=== PATIENT | male | born 1960 | race Caucasian/White ===

== ENCOUNTER 2021-07-24 20:02 | Inpatient (IN) ==
[2021-07-24] MEDS ORDERED: Ondansetron 4 MG/2 ML VIAL IVP PRN (22:10)
[2021-07-24] MEDS ORDERED: Acetaminophen 325 MG TABLET PO PRN (22:10)
[2021-07-24] MEDS ORDERED: Naloxone 0.4 MG/ML INJ IVP PRN (22:10)
[2021-07-24 23:12] LABS: VBG HCO3 24 mEq/L (21-27); VBG PCO2 28 mmHg (41-51); VBG PH 7.55 pH Units (7.32-7.42); VBG PO2 123 mmHg (25-50)
[2021-07-24 23:27] LABS: Creatine Kinase 325 Units/L (30-223); Ethanol < 10 mg/dL (Less than 10); Magnesium 1.3 mg/dL (1.6-2.6)
[2021-07-24 23:31] LABS: Troponin I 0.12 ng/mL (< 0.04)
[2021-07-24] MEDS ORDERED: 0.9 % Sodium Chloride 1,000 ML IVC SCH (23:45)
[2021-07-25] MEDS: *HR* LORazepam 2 MG/ML VIAL IVP PRN ×4 (00:52→20:46)
[2021-07-25 00:55] LABS: Basophils % 0.1 %; Hematocrit 34.1 % (37.5-50.1); Hemoglobin 11.6 g/dL (12.9-16.9); Immature Granulocytes % 0.4 % (0-4); Lymphocytes # 0.9 K/mcL (0.6-4.6); Lymphocytes % 9.2 %; Mean Corpuscular Hemoglobin 34.3 pg (28.0-33.3); Mean Corpuscular Volume 100.9 fL (83.0-100.0); Mean Platelet Volume 11.3 fL (9.4-12.4); Monocytes # 0.4 K/mcL (0.0-1.3); Monocytes % 4.6 %; Neutrophils # 8.2 K/mcL (1.6-8.9); Platelet Count 123 K/mcL (140-400); Red Blood Count 3.38 M/mcL (4.19-5.50); Red Cell Distribution Width 13.2 % (11.5-14.5); Segmented Neutrophils % 85.7 %; White Blood Count 9.6 K/mcL (4.3-11.1)
[2021-07-25 01:11] LABS: Alanine Aminotransferase 8 Units/L (7-52); Albumin 2.8 g/dL (3.5-5.7); Albumin/Globulin Ratio 1.1 (1.1-2.2); Alkaline Phosphatase 58 Units/L (34-104); Aspartate Amino Transferase 24 Units/L (13-39); BUN/Creatinine Ratio 32 (6-26); Bilirubin,Direct 0.4 mg/dL (0.0-0.2); Bilirubin,Indirect 0.9 mg/dL (0.0-1.0); Bilirubin,Total 1.3 mg/dL (0.3-1.0); Blood Urea Nitrogen 22 mg/dL (8-23); Calcium 7.8 mg/dL (8.6-10.3); Carbon Dioxide 24 mEq/L (23-29); Chloride 105 mEq/L (98-107); Chol/HDL Ratio 5.4 (0-4.9); Cholesterol 113 mg/dL (< 200); Globulin 2.6 g/dL (2.4-3.5); Glucose 91 mg/dL (70-105); HDL Cholesterol 21 mg/dL (40-59); LDL Cholesterol,Calculated 62 mg/dL (< 100); Osmolality,Calculated 293 (280-300); Potassium 3.1 mEq/L (3.5-5.1); Sodium 140 mEq/L (136-145); Total Protein 5.4 g/dL (6.4-8.9); Triglycerides 149 mg/dL (< 150); eGFR For African Americans > 60 (> 60); eGFR For Non-African Americans > 60 (> 60)
[2021-07-25 01:21] LABS: INR 1.9; Prothrombin Time 21.4 Seconds (9.4-12.1)
[2021-07-25 01:34] LABS: Folate 5.6 ng/mL (3.0-16.0)
[2021-07-25] MEDS ORDERED: Gadolinium Contrast Agent (WT Based) IV PRN (01:37)
[2021-07-25] MEDS ORDERED: Perflutren Lipid Microsphere 1.3 ML in 0.9 % Sodium Chloride 8.7 ML IVP PRN (01:37)
[2021-07-25] MEDS ORDERED: Calcium Gluconate 1gm/50mL 1 GM/50 ML BAG IVPB ONE (01:50)
[2021-07-25 02:20] LABS: Adenovirus Not Detected (Not Detect); Bordetella Pertussis Not Detected (Not Detect); Chlamydophila pneumoniae Not Detected (Not Detect); Coronavirus 229E Not Detected (Not Detect); Coronavirus HKU1 Not Detected (Not Detect); Coronavirus NL63 Not Detected (Not Detect); Coronavirus OC43 Not Detected (Not Detect); Human Metapneumovirus Not Detected (Not Detect); Human Rhinovirus/Enterovirus Not Detected (Not Detect); Influenza A Subtype 2009 H1 Not Detected (Not Detect); Influenza B Not Detected (Not Detect); Mycoplasma pneumoniae Not Detected (Not Detect); Parainfluenza Virus 1 Not Detected (Not Detect); Parainfluenza Virus 2 Not Detected (Not Detect); Parainfluenza Virus 3 Not Detected (Not Detect); Parainfluenza Virus 4 Not Detected (Not Detect); Respiratory Syncytial Virus Not Detected (Not Detect); SARS-CoV-2 DETECTED (Not Detect)
[2021-07-25 02:26] LABS: Estimated Average Glucose 120 mg/dl; Hemoglobin A1C 5.8 %
[2021-07-25] MEDS: Ketorolac 30 MG/ML VIAL IVP PRN ×2 (02:32→13:26)
[2021-07-25 05:44] LABS: Fibrinogen 496 mg/dL (169-393)
[2021-07-25 05:48] LABS: D-Dimer 1518 ng/mLFEU (0-500)
[2021-07-25 05:54] LABS: Salicylate < 2.5 mg/dL (15.0-30.0)
[2021-07-25] MEDS ORDERED: *HR* Heparin 5,000 UNIT/ML VIAL IVP ONE (06:16)
[2021-07-25] MEDS ORDERED: *HR* Heparin 5,000 UNIT/ML VIAL IVP PRN (06:16)
[2021-07-25 06:17] LABS: Ferritin 289 ng/mL (20-250)
[2021-07-25] MEDS ORDERED: Isovue-370 500 ML BOTTLE IVP ONE (06:25)
[2021-07-25] MEDS: Heparin 25,000UNIT/250ML 1/2NS 25,000 UNIT/250 ML IV.SOLN IVC SCH (06:55)
[2021-07-25 08:15] LABS: C-Reactive Protein 141 mg/L (Less than 10)
[2021-07-25 08:33] LABS: % Iron Saturation 8 % (20-55); Iron 14 mcg/dL (65-175); Lactate Dehydrogenase 597 Units/L (140-271); Transferrin 129 mg/dL (203-362)
[2021-07-25] MEDS ORDERED: Azithromycin 500 MG in 0.9 % Sodium Chloride 250 ML IVPB SCH (09:00)
[2021-07-25] MEDS ORDERED: cefTRIAXone 1,000 MG in 0.9 % Sodium Chloride Mini Bag 100 ML IVPB SCH (09:00)
[2021-07-25] MEDS: Ipratropium 1 PUFF INHALER IH SCH ×4 (11:18→23:43)
[2021-07-25] MEDS: *HR* FentaNYL PATCH 25 MCG PATCH TD SCH (12:25)
[2021-07-25] MEDS: Piperacillin/Tazobactam 3.375 GM in 0.9 % Sodium Chloride Mini Bag 100 ML IVPB SCH (17:25)
[2021-07-25] MEDS: *HR* Heparin 5,000 UNIT/ML VIAL IVP PRN (18:45)
[2021-07-25] MEDS: *HR* OxyCODONE Immed Rel 5 MG TABLET PO PRN (22:25)
[2021-07-26] MEDS: Piperacillin/Tazobactam 3.375 GM in 0.9 % Sodium Chloride Mini Bag 100 ML IVPB SCH ×4 (00:54→23:17)
[2021-07-26] MEDS: *HR* LORazepam 2 MG/ML VIAL IVP PRN ×5 (00:54→20:16)
[2021-07-26] MEDS: Ipratropium 1 PUFF INHALER IH SCH ×6 (03:53→23:45)
[2021-07-26 04:39] LABS: Basophils % 0.1 %; Hematocrit 31.2 % (37.5-50.1); Hemoglobin 10.7 g/dL (12.9-16.9); Immature Granulocytes % 0.5 % (0-4); Lymphocytes # 0.8 K/mcL (0.6-4.6); Lymphocytes % 8.2 %; Mean Corpuscular HGB Conc 34.3 g/dL (31.6-35.5); Mean Corpuscular Hemoglobin 35.2 pg (28.0-33.3); Mean Corpuscular Volume 102.6 fL (83.0-100.0); Mean Platelet Volume 11.8 fL (9.4-12.4); Monocytes # 0.6 K/mcL (0.0-1.3); Monocytes % 6.3 %; Neutrophils # 8.1 K/mcL (1.6-8.9); Platelet Count 189 K/mcL (140-400); Red Blood Count 3.04 M/mcL (4.19-5.50); Red Cell Distribution Width 13.2 % (11.5-14.5); Segmented Neutrophils % 84.9 %; White Blood Count 9.5 K/mcL (4.3-11.1)
[2021-07-26 04:55] LABS: BUN/Creatinine Ratio 40 (6-26); Blood Urea Nitrogen 32 mg/dL (8-23); Calcium 7.8 mg/dL (8.6-10.3); Carbon Dioxide 26 mEq/L (23-29); Chloride 107 mEq/L (98-107); Glucose 99 mg/dL (70-105); Magnesium 1.9 mg/dL (1.6-2.6); Osmolality,Calculated 305 (280-300); Potassium 3.4 mEq/L (3.5-5.1); Sodium 144 mEq/L (136-145); eGFR For African Americans > 60 (> 60); eGFR For Non-African Americans > 60 (> 60)
[2021-07-26] MEDS: *HR* Heparin 5,000 UNIT/ML VIAL IVP PRN ×2 (05:02→14:14)
[2021-07-26] MEDS: Ketorolac 30 MG/ML VIAL IVP PRN ×3 (05:59→20:17)
[2021-07-26] MEDS: Heparin 25,000UNIT/250ML 1/2NS 25,000 UNIT/250 ML IV.SOLN IVC SCH ×2 (06:00→20:43)
[2021-07-26 08:43] LABS: Bilirubin,Urine Negative (Negative); Blood,Urine Negative (Negative); Clarity,Urine Clear (Clear); Color,Urine Yellow (Yellow); Glucose,Urine (UA) Normal (Normal); Ketones,Urine 40 mg/dL (Negative); Leukocyte Esterase,Urine Negative (Negative); Mucus,Urine Few per lpf (None-Few); Nitrite,Urine Negative (Negative); Protein,Urine 30 mg/dL (Neg-Trace); RBC,Urine 0-3 per hpf (0-3); Specific Gravity,Urine > 1.030 (1.010-1.025); WBC,Urine 0-3 per hpf (0-3)
[2021-07-26 10:49] LABS: Amphetamine Screen,Urine Negative ng/mL (Cutoff=1000); Barbiturate Screen,Urine Negative ng/mL (Cutoff=200); Benzodiazepines Screen,Urine Positive ng/mL (Cutoff=200); Cannabinoid Screen,Urine Positive ng/mL (Cutoff = 50); Cocaine Screen,Urine Negative ng/mL (Cutoff= 300); Opiate Screen,Urine Negative ng/mL (Cutoff=300); Phencyclidine Screen,Urine Negative ng/mL (Cutoff=25)
[2021-07-26] MEDS ORDERED: Ringers Solution, Lactated 1,000 ML IVC SCH (12:00)
[2021-07-26] MEDS ORDERED: Cyanocobalamin (B-12) 1,000 MCG/ML VIAL IM ONE (12:05)
[2021-07-26] MEDS: Thiamine (B-1) 100 MG in 0.9 % Sodium Chloride 50 ML IVPB SCH (12:50)
[2021-07-26] MEDS: Nicotine 21 MG PATCH.TD24 TD SCH (16:01)
[2021-07-26] MEDS ORDERED: Haloperidol Lactate 5 MG/ML VIAL IVP ONE (23:16)
[2021-07-26] MEDS: *HR* OxyCODONE Immed Rel 5 MG TABLET PO PRN (23:17)
[2021-07-27] MEDS: Ketorolac 30 MG/ML VIAL IVP PRN ×2 (02:27→08:09)
[2021-07-27] MEDS: *HR* LORazepam 2 MG/ML VIAL IVP PRN ×3 (02:27→19:48)
[2021-07-27 03:24] LABS: Hematocrit 30.2 % (37.5-50.1); Hemoglobin 10.3 g/dL (12.9-16.9); Immature Granulocytes % 0.5 % (0-4); Lymphocytes # 0.9 K/mcL (0.6-4.6); Lymphocytes % 10.2 %; Mean Corpuscular HGB Conc 34.1 g/dL (31.6-35.5); Mean Corpuscular Hemoglobin 34.6 pg (28.0-33.3); Mean Corpuscular Volume 101.3 fL (83.0-100.0); Mean Platelet Volume 11.8 fL (9.4-12.4); Monocytes # 0.5 K/mcL (0.0-1.3); Monocytes % 5.9 %; Platelet Count 206 K/mcL (140-400); Red Blood Count 2.98 M/mcL (4.19-5.50); Red Cell Distribution Width 13.3 % (11.5-14.5); Segmented Neutrophils % 83.4 %; White Blood Count 8.4 K/mcL (4.3-11.1)
[2021-07-27 03:46] LABS: BUN/Creatinine Ratio 44 (6-26); Blood Urea Nitrogen 35 mg/dL (8-23); Calcium 7.7 mg/dL (8.6-10.3); Carbon Dioxide 24 mEq/L (23-29); Chloride 110 mEq/L (98-107); Glucose 91 mg/dL (70-105); Magnesium 1.8 mg/dL (1.6-2.6); Osmolality,Calculated 310 (280-300); Potassium 3.6 mEq/L (3.5-5.1); Sodium 146 mEq/L (136-145); eGFR For African Americans > 60 (> 60); eGFR For Non-African Americans > 60 (> 60)
[2021-07-27] MEDS: Ipratropium 1 PUFF INHALER IH SCH ×6 (04:02→23:41)
[2021-07-27 04:09] LABS: Albumin 2.8 g/dL (3.5-5.7); Bilirubin,Direct 0.1 mg/dL (0.0-0.2); Bilirubin,Indirect 0.8 mg/dL (0.0-1.0); Bilirubin,Total 0.9 mg/dL (0.3-1.0); Globulin 2.7 g/dL (2.4-3.5); Total Protein 5.5 g/dL (6.4-8.9)
[2021-07-27] MEDS: *HR* Heparin 5,000 UNIT/ML VIAL IVP PRN (05:34)
[2021-07-27] MEDS: Piperacillin/Tazobactam 3.375 GM in 0.9 % Sodium Chloride Mini Bag 100 ML IVPB SCH ×3 (08:17→23:26)
[2021-07-27] MEDS: Nicotine 21 MG PATCH.TD24 TD SCH (08:22)
[2021-07-27] MEDS ORDERED: Potassium Chloride Elixir 20 MEQ/15 ML UDC PO ONE (11:21)
[2021-07-27] MEDS ORDERED: *HR* FentaNYL PATCH 25 MCG PATCH TD SCH (12:15)
[2021-07-27] MEDS: diazePAM 5 MG TABLET PO SCH ×2 (12:34→21:00)
[2021-07-27] MEDS: Metoprolol XL (24 HR) Succ 25 MG TAB.ER.24H PO SCH (12:34)
[2021-07-27] MEDS: Aspirin 81 MG TAB.CHEW PO SCH (12:34)
[2021-07-27] MEDS: Thiamine (B-1) 100 MG in 0.9 % Sodium Chloride 50 ML IVPB SCH (12:40)
[2021-07-27] MEDS ORDERED: Cyanocobalamin (B-12) 1,000 MCG/ML VIAL IM ONE (13:40)
[2021-07-27] MEDS: *HR* Heparin 5,000 UNIT/ML VIAL SQ SCH (17:25)
[2021-07-28] MEDS: Ipratropium 1 PUFF INHALER IH SCH ×2 (03:31→07:31)
[2021-07-28 05:29] LABS: Basophils % 0.1 %; Hematocrit 31.6 % (37.5-50.1); Hemoglobin 10.2 g/dL (12.9-16.9); Immature Granulocytes % 0.4 % (0-4); Lymphocytes # 0.9 K/mcL (0.6-4.6); Lymphocytes % 10.1 %; Mean Corpuscular HGB Conc 32.3 g/dL (31.6-35.5); Mean Corpuscular Hemoglobin 33.3 pg (28.0-33.3); Mean Corpuscular Volume 103.3 fL (83.0-100.0); Mean Platelet Volume 11.8 fL (9.4-12.4); Monocytes # 0.5 K/mcL (0.0-1.3); Monocytes % 5.3 %; Neutrophils # 7.2 K/mcL (1.6-8.9); Platelet Count 216 K/mcL (140-400); Red Blood Count 3.06 M/mcL (4.19-5.50); Red Cell Distribution Width 13.8 % (11.5-14.5); Segmented Neutrophils % 84.1 %; White Blood Count 8.5 K/mcL (4.3-11.1)
[2021-07-28 05:50] LABS: BUN/Creatinine Ratio 42 (6-26); Blood Urea Nitrogen 31 mg/dL (8-23); Calcium 7.8 mg/dL (8.6-10.3); Carbon Dioxide 28 mEq/L (23-29); Chloride 112 mEq/L (98-107); Glucose 92 mg/dL (70-105); Osmolality,Calculated 312 (280-300); Potassium 3.4 mEq/L (3.5-5.1); Sodium 148 mEq/L (136-145); eGFR For African Americans > 60 (> 60); eGFR For Non-African Americans > 60 (> 60)
[2021-07-28] MEDS: *HR* Heparin 5,000 UNIT/ML VIAL SQ SCH ×2 (06:28→15:46)
[2021-07-28] MEDS ORDERED: diazePAM 10 MG/2 ML SYRINGE IVP PRN (08:11)
[2021-07-28] MEDS: *HR* LORazepam 2 MG/ML VIAL IVP PRN (09:25)
[2021-07-28] MEDS: Metoprolol XL (24 HR) Succ 25 MG TAB.ER.24H PO SCH (09:54)
[2021-07-28] MEDS: Aspirin 81 MG TAB.CHEW PO SCH (09:54)
[2021-07-28] MEDS ORDERED: Dexmedetomidine HCl 400 MCG/100 ML MLS IVC SCH (10:00)
[2021-07-28 10:01] LABS: ABG Base Excess 1 mEq/L (-2 to 3); ABG HCO3 26 mEq/L (21-27); ABG Oxygen Saturation 75 % (95-98); ABG PCO2 43 mmHg (35-45); ABG PH 7.39 pH Units (7.32-7.45); ABG PO2 40 mmHg (85-104); ABG TCO2 27 mEq/L (20-26)
[2021-07-28] MEDS: Acetylcysteine 10% 2 ML INHSOL IH SCH ×3 (11:00→20:19)
[2021-07-28] MEDS: Ipratropium/Albuterol Neb 3 ML IH SCH ×3 (11:00→20:18)
[2021-07-28] MEDS: D5% in Water 1,000 ML IVC SCH (11:18)
[2021-07-28] MEDS ORDERED: Lidocaine -MPF 1% 5 ML AMPUL INFILT ONE (13:54)
[2021-07-28 14:19] LABS: ABG Base Excess 3 mEq/L (-2 to 3); ABG HCO3 29 mEq/L (21-27); ABG Oxygen Saturation 92 % (95-98); ABG PCO2 45 mmHg (35-45); ABG PH 7.41 pH Units (7.32-7.45); ABG PO2 62 mmHg (85-104); ABG TCO2 30 mEq/L (20-26)
[2021-07-28] MEDS: Piperacillin/Tazobactam 3.375 GM in 0.9 % Sodium Chloride Mini Bag 100 ML IVPB SCH ×2 (15:18→15:44)
[2021-07-28] MEDS: Thiamine (B-1) 100 MG in 0.9 % Sodium Chloride 50 ML IVPB SCH (15:19)
[2021-07-28] MEDS: Nicotine 21 MG PATCH.TD24 TD SCH (15:40)
[2021-07-28] MEDS: *HR* FentaNYL PATCH 25 MCG PATCH TD SCH (15:40)
[2021-07-28 17:59] LABS: ABG Base Excess 3 mEq/L (-2 to 3); ABG HCO3 27 mEq/L (21-27); ABG Oxygen Saturation 98 % (95-98); ABG PCO2 38 mmHg (35-45); ABG PH 7.46 pH Units (7.32-7.45); ABG PO2 100 mmHg (85-104); ABG TCO2 28 mEq/L (20-26)
[2021-07-28] MEDS ORDERED: diazePAM 10 MG/2 ML SYRINGE IVP SCH (21:00)
[2021-07-28 23:02] VITALS: BP 171/96; TEMP 97.5; O2SAT 99
[2021-07-29] MEDS: Piperacillin/Tazobactam 3.375 GM in 0.9 % Sodium Chloride Mini Bag 100 ML IVPB SCH (01:00)
[2021-07-29] MEDS: D5% in Water 1,000 ML IVC SCH (01:00)
[2021-07-29] MEDS ORDERED: *HR* Metoprolol 5 MG/5 ML VIAL IVP ONE (01:09)
[2021-07-29 01:19] LABS: Hematocrit 32.9 % (37.5-50.1); Hemoglobin 10.8 g/dL (12.9-16.9); Immature Granulocytes % 0.5 % (0-4); Lymphocytes # 0.6 K/mcL (0.6-4.6); Lymphocytes % 7.7 %; Mean Corpuscular HGB Conc 32.8 g/dL (31.6-35.5); Mean Corpuscular Hemoglobin 33.4 pg (28.0-33.3); Mean Corpuscular Volume 101.9 fL (83.0-100.0); Mean Platelet Volume 11.7 fL (9.4-12.4); Monocytes # 0.2 K/mcL (0.0-1.3); Platelet Count 177 K/mcL (140-400); Red Blood Count 3.23 M/mcL (4.19-5.50); Red Cell Distribution Width 13.7 % (11.5-14.5); Segmented Neutrophils % 88.8 %; White Blood Count 7.9 K/mcL (4.3-11.1)
[2021-07-29 01:39] LABS: Alanine Aminotransferase 12 Units/L (7-52); Albumin 2.7 g/dL (3.5-5.7); Alkaline Phosphatase 41 Units/L (34-104); Aspartate Amino Transferase 12 Units/L (13-39); BUN/Creatinine Ratio 31 (6-26); Bilirubin,Total 0.9 mg/dL (0.3-1.0); Blood Urea Nitrogen 20 mg/dL (8-23); Calcium 7.6 mg/dL (8.6-10.3); Carbon Dioxide 30 mEq/L (23-29); Chloride 105 mEq/L (98-107); Globulin 2.6 g/dL (2.4-3.5); Glucose 180 mg/dL (70-105); Magnesium 1.7 mg/dL (1.6-2.6); Osmolality,Calculated 303 (280-300); Potassium 3.4 mEq/L (3.5-5.1); Sodium 143 mEq/L (136-145); Total Protein 5.3 g/dL (6.4-8.9); eGFR For African Americans > 60 (> 60); eGFR For Non-African Americans > 60 (> 60)
[2021-07-29 03:00] VITALS: PULSE 45
[2021-07-29] MEDS: Acetylcysteine 10% 2 ML INHSOL IH SCH (03:57)
[2021-07-29] MEDS: Ipratropium/Albuterol Neb 3 ML IH SCH (03:57)
== END 2021-07-29 05:00 | disposition expired | DRG 193 ==
LOC: 3BNU → SUATTDRO 21:27 → 2NNU 07-28 10:41
PROVIDERS: ADMIT Internal Medicine; ATTEND Family Medicine